=== PATIENT | female | born 1945 | race Caucasian/White ===

== ENCOUNTER → 2021-05-21 | Outpatient (CLI) | payer MEDICARE, OTHER | LOC: RAD 16:44 | DX: R05 Cough (principal); R91.8 Other nonspecific abnormal finding of lung field | CPT/HCPCS: 71046 ==

== ENCOUNTER → 2021-09-22 | Outpatient (CLI) | payer MEDICARE, OTHER | LOC: MAMO 09:55 | DX: Z12.31 Encounter for screening mammogram for malignant neoplasm of breast (principal) | CPT/HCPCS: 77063; 77067 ==

== ENCOUNTER → 2022-02-04 | Outpatient (CLI) | payer MEDICARE, OTHER ==
[~2022-02-04] MED LIST: LEVOTHYROXINE25 MC1 PO; MELOXICAM15 MG PO; MULTI-VITAMIN1 EACH PO; PRAVASTATIN SOD40 MG PO; QUINAPRIL HCL10 MG PO; RALOXIFENE HCL60 MG PO; VITAMIN B12; VITAMIN D3
[2022-02-04 10:35] LABS: HEMOGLOBIN 13.1 gm/dl (12.3-15.3); RED BLOOD COUNT 3.89 M/UL (4.00-5.10); WHITE BLOOD COUNT 5.4 K/UL (4.5-11.0)
[2022-02-04 10:38] LABS: BUN/CREATININE RATIO 23 (0-10)
== END ==
LOC: OPSV2 08:59 → EDSTATUS 09:00
PROVIDERS: Orthopaedic Surgery
DX: Z01.818 Encounter for other preprocedural examination (principal); M17.12 Unilateral primary osteoarthritis, left knee; I10 Essential (primary) hypertension; E78.00 Pure hypercholesterolemia, unspecified
CPT/HCPCS: 36415; 80048; 85027; 93005

== ENCOUNTER → 2022-02-16 | Outpatient (CLI) | payer MEDICARE, OTHER ==
[~2022-02-16] MED LIST changes: +CYCLOBENZAPRINE10 MG PO; +ELIQUIS2.5 MG PO; +PERCOCET 7.5-31 EACH PO; +ZOFRAN 4 MG TAB4 MG PO
[2022-02-16 11:50] LABS: BUN/CREATININE RATIO 21 (0-10)
== END ==
LOC: LAB 10:42
PROVIDERS: Orthopaedic Surgery
DX: Z01.812 Encounter for preprocedural laboratory examination (principal); Z20.822 Contact with and (suspected) exposure to COVID-19
CPT/HCPCS: 36415; 80048; 86850; 86900; 86901; U0002

== ENCOUNTER 2022-02-17 05:23 | Day surgery (SDC) | payer MEDICARE, OTHER ==
[~2022-02-17] VITALS: Ht 160 cm; Wt 62.6 kg
[~2022-02-17 05:23] MED LIST changes: -CYCLOBENZAPRINE10 MG PO; -ELIQUIS2.5 MG PO; -PERCOCET 7.5-31 EACH PO; -ZOFRAN 4 MG TAB4 MG PO
[2022-02-18 04:01] LABS: RED BLOOD COUNT 2.94 M/UL (4.00-5.10); WHITE BLOOD COUNT 11.1 K/UL (4.5-11.0)
[2022-02-18 04:56] LABS: BUN/CREATININE RATIO 17 (0-10)
[2022-02-18] MEDS ORDERED: ELIQUIS2.5 MG PO (17:03)
[2022-02-18] MEDS ORDERED: PERCOCET 7.5-31 EACH PO (17:05)
[2022-02-18] MEDS ORDERED: ZOFRAN 4 MG TAB4 MG PO (17:06)
[2022-02-18] MEDS ORDERED: CYCLOBENZAPRINE10 MG PO (17:07)
[2022-02-19 06:29] LABS: RED BLOOD COUNT 2.68 M/UL (4.00-5.10)
[2022-02-19 06:31] LABS: WHITE BLOOD COUNT 6.3 K/UL (4.5-11.0)
[2022-02-19 06:56] LABS: BUN/CREATININE RATIO 14 (0-10)
== END 2022-02-19 13:17 | disposition home health service (06) ==
LOC: OR 05:23 → EDSTATUS 14:15 → OR 14:15 → MED SURG 4 19:19 → OR 02-19 13:17
PROVIDERS: Nurse Practitioner Family; Orthopaedic Surgery
DX: M17.12 Unilateral primary osteoarthritis, left knee (principal); M21.062 Valgus deformity, not elsewhere classified, left knee; G89.18 Other acute postprocedural pain; I10 Essential (primary) hypertension; E03.9 Hypothyroidism, unspecified; E78.5 Hyperlipidemia, unspecified; E87.1 Hypo-osmolality and hyponatremia; Z20.822 Contact with and (suspected) exposure to COVID-19; Z88.8 Allergy status to other drugs, medicaments and biological substances; Z79.899 Other long term (current) drug therapy
CPT/HCPCS: 36415; 73560; 80048; 85027; 97110; 97110-GP-CQ; 97116-GP-CQ; 97162; 97165; 97530; 97535; C1713; C1776; J0690; J1100; J1170; J1200; J1885; J2274; J2370; J2405; J2704; J2710; J2795; J3010; J3370; J3475; J7030; J7120

== ENCOUNTER → 2022-06-12 | Outpatient (CLI) | payer MEDICARE, OTHER ==
[~2022-06-12] MED LIST changes: +CYCLOBENZAPRINE10 MG PO; +ELIQUIS2.5 MG PO; +PERCOCET 7.5-31 EACH PO; +ZOFRAN 4 MG TAB4 MG PO
== END ==
LOC: KOH-I 14:56
DX: M25.552 Pain in left hip (principal)
CPT/HCPCS: 73502